=== PATIENT | female | born 1970 | race Caucasian/White ===

== ENCOUNTER 2019-04-03 10:36 | Emergency (ER) | payer MEDICAID ==
[~2019-04-03] VITALS: Ht 152.4 cm; Wt 85.0 kg
[2019-04-03 11:06] VITALS: BP 108/70
== END 2019-04-03 13:25 | disposition home or self-care (01) ==
LOC: ER 10:36
DX: H92.03 Otalgia, bilateral (principal); J02.9 Acute pharyngitis, unspecified
CPT/HCPCS: 87070; 87430; 99283

== ENCOUNTER 2019-11-20 10:02 | Emergency (ER) | payer MEDICAID ==
[~2019-11-20] VITALS: Ht 152.4 cm; Wt 95.0 kg
[2019-11-20] MEDS ORDERED: TRAMADOL 50MG TABLET PO ONE (11:45)
[2019-11-20 14:29] VITALS: BP 118/44
== END 2019-11-20 14:30 | disposition home or self-care (01) ==
LOC: ER 10:02
DX: S63.502A Unspecified sprain of left wrist, initial encounter (principal); W18.30XA Fall on same level, unspecified, initial encounter; Y93.89 Activity, other specified; Y92.89 Other specified places as the place of occurrence of the external cause; Y99.8 Other external cause status
CPT/HCPCS: 29125; 73110; 73130; 99284

== ENCOUNTER 2020-09-15 12:00 | Emergency (ER) | payer MEDICAID ==
[~2020-09-15] VITALS: Ht 152.4 cm; Wt 90.0 kg
[2020-09-15] MEDS ORDERED: NAPR500T7 MT (14:13)
[2020-09-15 14:26] VITALS: BP 109/81
== END 2020-09-15 14:26 | disposition home or self-care (01) ==
LOC: ER 12:00
DX: M25.521 Pain in right elbow (principal); W01.0XXA Fall on same level from slipping, tripping and stumbling without subsequent striking against object, initial encounter; Y93.89 Activity, other specified; Y92.018 Other place in single-family (private) house as the place of occurrence of the external cause
CPT/HCPCS: 73080; 99283; Z7610

== ENCOUNTER 2021-02-26 08:40 | Emergency (ER) | payer MEDICAID ==
[~2021-02-26] VITALS: Ht 152.4 cm; Wt 91.0 kg
[~2021-02-26 08:40] MED LIST: NAPR500T7 MT
[2021-02-26] MEDS ORDERED: HYDROCODONE/ACETAMINOPHEN 5/325MG TABLET PO ONE (10:15)
[2021-02-26] MEDS ORDERED: IBUP-2028 MT (11:19)
[2021-02-26] MEDS ORDERED: HYDR453.3 TP (11:25)
[2021-02-26 12:47] VITALS: BP 121/58
== END 2021-02-26 12:49 | disposition home or self-care (01) ==
LOC: ER 08:40
DX: S43.402A Unspecified sprain of left shoulder joint, initial encounter (principal); S46.812A Strain of other muscles, fascia and tendons at shoulder and upper arm level, left arm, initial encounter; L30.9 Dermatitis, unspecified; W01.0XXA Fall on same level from slipping, tripping and stumbling without subsequent striking against object, initial encounter; Y93.89 Activity, other specified; Y92.89 Other specified places as the place of occurrence of the external cause
CPT/HCPCS: 73030; 99284; A4565

== ENCOUNTER 2022-01-28 08:03 | Emergency (ER) | payer MEDICAID ==
[~2022-01-28] VITALS: Ht 152.4 cm; Wt 91.0 kg
[~2022-01-28 08:03] MED LIST changes: +HYDR453.3 TP; +IBUP-2028 MT
[2022-01-28] MEDS ORDERED: KETOROLAC 30MG/ML VIAL IV ONE (09:15)
[2022-01-28 09:31] VITALS: BP 134/80
[2022-01-28] MEDS ORDERED: ACET-2708 MT (10:06)
== END 2022-01-28 10:17 | disposition home or self-care (01) ==
LOC: ER 08:03
DX: M25.562 Pain in left knee (principal); W01.0XXA Fall on same level from slipping, tripping and stumbling without subsequent striking against object, initial encounter; Y93.89 Activity, other specified; Y92.9 Unspecified place or not applicable
CPT/HCPCS: 73560; 96374; 99283; J1885

== ENCOUNTER 2022-11-09 11:59 | Emergency (ER) | payer MEDICAID, OTHER ==
[~2022-11-09] VITALS: Ht 152.4 cm; Wt 90.7 kg
[~2022-11-09 11:59] MED LIST changes: +ACET-2708 MT
[2022-11-09 12:09] VITALS: O2SAT 99
[2022-11-09 13:01] LABS: CLARITY URINE TURBID (CLEAR); COLOR URINE YELLOW (YELLOW); KETONES URINE NEGATIVE (NEGATIVE); LEUKOCYTE ESTERASE URINE 3+ (NEGATIVE); NITRITE URINE NEGATIVE (NEGATIVE); OCCULT BLOOD URINE 3+ (NEGATIVE); PH URINE 5.5 (4.5-8.0); PROTEIN URINE 1+ (NEGATIVE); SPECIFIC GRAVITY URINE 1.021 (1.005-1.030); UROBILINOGEN URINE 0.2 E.U./dL (0.2-1.0)
[2022-11-09] MEDS ORDERED: CEPH500C2 MT (13:12)
[2022-11-09] MEDS ORDERED: ACET-2708 MT (13:12)
[2022-11-09] MEDS ORDERED: CEPHALEXIN 250MG CAPSULE PO ONE (13:15)
[2022-11-09 13:45] VITALS: BP 128/75; PULSE 67; RESP 18; TEMP 98.9
== END 2022-11-09 13:47 | disposition home or self-care (01) ==
LOC: ER 12:18
DX: N39.0 Urinary tract infection, site not specified (principal); Z00.00 Encounter for general adult medical examination without abnormal findings
CPT/HCPCS: 81003; 81025; 87186; 99283